=== PATIENT | female | born 1970 | race Caucasian/White ===

== ENCOUNTER 2017-05-14 11:52 | Emergency (ER) | payer OTHER ==
[~2017-05-14] VITALS: Ht 157.5 cm; Wt 74.0 kg
[~2017-05-14 11:52] MED LIST: ALPR0.254 PO; BENA5TAB2; GABA400C; LEVO25TA9; METF500T4 PO; VENL25TA17
[2017-05-14 11:56] VITALS: Ht 157.5 cm; Wt 74.0 kg
[2017-05-14] MEDS ORDERED: SULF1TAB31 PO (13:10)
[2017-05-14] MEDS ORDERED: CEPH-443 PO (13:10)
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
== END 2017-05-14 13:25 | disposition home or self-care (01) ==
LOC: FTE 11:52
DX: Z48.02 Encounter for removal of sutures (principal); I10 Essential (primary) hypertension; E11.9 Type 2 diabetes mellitus without complications; J45.909 Unspecified asthma, uncomplicated; Z79.84 Long term (current) use of oral hypoglycemic drugs
CPT/HCPCS: 99284